=== PATIENT | male | born 2000 | race Two or more races ===

== ENCOUNTER 2019-05-07 21:18 | Emergency (ER) | payer OTHER ==
--- OUTSIDE RECORDS SUMMARY | 2019-05-07 21:24 | XMS REPORT | Summary of Care ---
:2000 Author Organization [facility] Address [address] [address] Care Team Providers Name Role Phone Bismark Santana MD Primary Care Provider Reason for Referral MRI/CAT/PET Scan (Routine) Status Reason Specialty Diagnoses / Referred By Contact Referred To Procedures Contact Authorized Radiology Diagnoses Right elbow pain Loose body in elbow joint, right Juan R Vaughan MD [facility] Procedures MR UPPER EXTREMITY JOINT WO CONTRAST RIGHT [address] [place], [place] [id number] [place] [address] Phone: Reason for Visit Reason Comments New Patient Right elbow pain since last spring. Patient states that he has landed on the elbow several times. Encounter Details Date Type Department Care Team Description 04/23/2019 Office Visit [facility] - Juan R Vaughan MD Right elbow pain (Primary Dx); [place] [facility] Loose body in elbow joint, right [address] [facility] [place] [address] [place] [address] [place] [address] [phone] Allergies Active Allergy Reactions Severity Noted Date Comments Environmental Respiratory Reaction 07/29/2017 documented as of this encounter (statuses as of 04/25/2019) Medications No known medicationsdocumented as of this encounter (statuses as of 04/25/2019) Active Problems Problem Noted Date 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 documented as of this encounter Last Filed Vital Signs Vital Sign Reading Time Taken Comments Blood Pressure 117/77 04/23/2019 1:10 PM EST Pulse 95 04/23/2019 1:10 PM EST Temperature - - Respiratory Rate - - Oxygen Saturation - - Inhaled Oxygen Concentration - - Weight 101.6 kg (224 lb) 04/23/2019 1:10 PM EST Height 198.1 cm (6' 6") 04/23/2019 1:10 PM EST Body Mass Index 25.89 04/23/2019 1:10 PM EST documented in this encounter Progress Notes Juan R Vuaghan MD - 04/23/2019 1:00 PM EST Name: Jet Webb : 2000 Date of Service: 04/23/2019 Referring Provider: Self-Referred Primary Care Provider: Bismark Santana Chief Complaint Patient presents with New Patient Right elbow pain since last spring. Patient states that he has landed on the elbow several times. History of Present Illness: Jet Webb is a 19-y.o. States he injured his right elbow below last spring 1999pa ient is in today for evaluation of his right dominant elbow. Patient states he injured his right elbow while playing basketball last spring 2018. 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 History reviewed. No pertinent past medical history. History reviewed. No pertinent surgical history. No current outpatient medications on file. No current facility-administered medications for this visit. Allergies Allergen Reactions Environmental Respiratory Reaction Social History Socioeconomic History Marital status: Single Spouse name: Not on file Number of children: Not on file Years of education: Not on file Highest education level: Not on file Occupational History Not on file Social Needs Financial resource strain: Not on file Food insecurity Worry: Not on file Inability: Not on file Transportation needs Medical: Not on file Non-medical: Not on file Tobacco Use Smoking status: Never Smoker Smokeless tobacco: Never Used Substance and Sexual Activity Alcohol use: Not on file Drug use: Not on file Sexual activity: Not on file Lifestyle Physical activity Days per week: Not on file Minutes per session: Not on file Stress: Not on file Relationships Social connections Talks on phone: Not on file Gets together: Not on file Attends nondenominational service: Not on file Active member of club or organization: Not on file Attends meetings of clubs or organizations: Not on file Relationship status: Not on file Intimate partner violence Fear of current or ex partner: Not on file Emotionally abused: Not on file Physically abused: Not on file Forced sexual activity: Not on file Other Topics Concern Not on file Social History Narrative Not on file History reviewed. No pertinent family history. Physical Examination: BP 117/77 | Pulse 95 | Ht 6' 6" (1.981 m) | Wt 224 lb (101.6 kg) | BMI 25.89 kg/m Well-developed well-nourished male in minimal discomfort at rest. Examination of right dominant elbow reveals: -5 degrees of full extension. After which the patient complains of discomfort patient has flexion to 120 degrees after which she has moderate discomfort. Patient has full supination and full pronation of the right elbow. Xrays: Right elbow reveal degenerative changes at the olecranon humeral joint. Impression: 1. Right elbow pain Traumatic DJD right elbow Plan: We will obtain MRI of right elbow to rule out loose bodies. follow-up after MRI is completed. L questions answered. There are no Patient Instructions on file for this visit. Author: Juan R Vaughan MD 04/23/2019 13:30 documented in this encounter Plan of Treatment Date Type Specialty Care Team Description 04/30/2019 Ancillary Procedure Radiology 05/14/2019 Office Visit Orthopedics Juan R Vaughan MD [address] [place] [id number] [phone] Name Type Priority Associated Diagnoses Order Schedule MR UPPER EXTREMITY Imaging Routine Right elbow pain Expected: 04/23/2019, JOINT WO CONTRAST RIGHT Loose body in elbow Expires: 04/22/2020 joint, right Health Maintenance Due Date Last Done Comments DTaP/Tdap/Td Vaccines (1 - Tdap) 2009 HPV IMMUNIZATION SERIES (1 - Male 2009 2-dose series) DEPRESSION SCREENING 2010 HIV SCREENING 2013 INFLUENZA VACCINE (#1) 2019 HEPATITIS A IMMUNIZATION SERIES Aged Out No longer eligible based on patient's age to complete this topic MENINGOCOCCAL VACCINE IMM Aged Out No longer eligible based on patient's age to complete this topic PNEUMOCOCCAL 0-64 YRS Aged Out No longer eligible based on patient's age to complete this topic documented as of this encounter Results XR ELBOW MIN 3 VIEWS RIGHT (STANDARD) (04/23/2019 1:20 PM EST) Specimen Impressions Performed At No acute findings. No evidence for fracture. Urgency: Routine. This is a routine medical imaging report. Recommendation: No specific imaging recommendation. Signed by Epifanio Arce MD on 04/24/2019 2:52 PM Narrative Performed At Procedure(s): XR ELBOW MIN 3 VIEWS RIGHT (STANDARD) Date of service: 04/23/2019 1:14 PM Provided clinical information: 19 years, Male, "right elbow pain" Procedure and materials: Standard protocol. Comparison studies: None. Observations: 3 views right elbow. Bones appear intact with no fracture evident. Normal bony mineralization seen. No erosive findings. Elbow joint spaces as imaged appear fairly well preserved. There is no fat pad displacement. Procedure Note Interface, Rad Results - 04/24/2019 2:54 PM EST Procedure(s): XR ELBOW MIN 3 VIEWS RIGHT (STANDARD) Date of service: 04/23/2019 1:14 PM Provided clinical information: 19 years, Male, "right elbow pain" Procedure and materials: Standard protocol. Comparison studies: None. Observations: 3 views right elbow. Bones appear intact with no fracture evident. Normal bony mineralization seen. No erosive findings. Elbow joint spaces as imaged appear fairly well preserved. There is no fat pad displacement. IMPRESSION No acute findings. No evidence for fracture. Urgency: Routine. This is a routine medical imaging report. Recommendation: No specific imaging recommendation. Signed by Epifanio Arce MD on 04/24/2019 2:52 PM documented in this encounter Visit Diagnoses Diagnosis Right elbow pain Pain in joint, upper arm Loose body in elbow joint, right documented in this encounter Insurance Payer Benefit Plan / Subscriber ID Effective Phone Address Type Group Dates [facility] [employer] xxxxxxxxx 2018-Prese [facility] [employer] xxxxxxxxxxxx 2019-Pres [employer] ent documented as of this encounter
--- NOTE | 2019-05-07 21:31 | UC ---
Laceration HPI - HPI Summary HPI Summary: 19 yo [employer], lacerated the underside of his left chin tonight when he bumped another player during play. Tetanus up to date. No other head or neck trauma--feels fine without headache, vision changes, dizziness etc. - History Of Current Complaint Stated Complaint: CHIN LACERATION Time Seen by Provider: 05/07/19 21:25 Hx Obtained From: Patient Mechanism Of Injury: Blunt Trauma Onset/Duration: Sudden Onset, Lasting Hours - less than 2 hours ago Aggravating Factors: Movement - Allergies/Home Medications Allergies/Adverse Reactions: Allergies Allergy/AdvReac Type Severity Reaction Status Date / Time No Known Allergies Allergy Verified 07/22/17 09:36 Home Medications: Home Medications NK [No Home Medications Reported] 05/07/19 [History Confirmed 05/07/19] PMH/Surg Hx/FS Hx/Imm Hx Previously Healthy: Yes - Surgical History Surgical History: Yes Surgery Procedure, Year, and Place: RIGHT KNEE FOR OSTEOCHONDRITIS UNDER PATELLA ;. WISDOM TEETH/ORAL PROCEDURES; - Family History Known Family History: Positive: Non-Contributory - Social History Occupation: Student Lives: Dormitory/Roommates Alcohol Use: None Substance Use Type: None Have You Smoked in the Last Year: No Review of Systems All Other Systems Reviewed And Are Negative: Yes Constitutional: Positive: Negative Skin: Positive: Negative Eyes: Positive: Negative ENT: Positive: Negative Respiratory: Positive: Negative Cardiovascular: Positive: Negative Gastrointestinal: Positive: Negative Genitourinary: Positive: Negative Motor: Positive: Negative Neurovascular: Positive: Negative Musculoskeletal: Positive: Negative Neurological: Positive: Negative Psychological: Positive: Negative Is Patient Immunocompromised?: No Physical Exam Triage Information Reviewed: Yes Appearance: Well-Appearing, No Pain Distress Eye Exam: Normal ENT: Positive: Pharynx normal Neck: Positive: Supple, Nontender, No Lymphadenopathy Respiratory: Positive: Lungs clear, Normal breath sounds Cardiovascular: Positive: RRR, No Murmur Musculoskeletal Exam: Normal Neurological Exam: Normal Psychological Exam: Normal Skin Exam: Other - laceration of the underside of the left chin, 1 cm, full dermis Laceration Repair - Laceration Repair 1 Description: Linear Laceration Course/Dx - Diagnosis Provider Diagnosis: Laceration of chin without complication Discharge ED - Sign-Out/Discharge Documenting (check all that apply): Patient Departure All imaging exams completed and their final reports reviewed: No Studies - Discharge Plan Condition: Good Disposition: HOME Patient Education Materials: Facial Laceration (ED) Referrals: No Primary Care Phys,NOPCP [Primary Care Provider] - Additional Instructions: Please have sutures removed in FIVE days, and keep the wound as clean and dry as you can. Infection is low likelihood, but follow up if the wound has drainage or becomes more painful. - Billing Disposition and Condition Condition: GOOD Disposition: Home
[2019-05-07 21:33] VITALS: BP 125/58
[2019-05-07] MEDS ORDERED: Lidocaine 2% PF * 5 ML VIAL IV ONE (21:42)
== END 2019-05-07 22:19 | disposition home or self-care (01) ==
LOC: UCEAST 21:18
DX: S01.81XA Laceration without foreign body of other part of head, initial encounter (principal); W51.XXXA Accidental striking against or bumped into by another person, initial encounter; Y93.67 Activity, basketball; Y92.9 Unspecified place or not applicable
CPT/HCPCS: 12011; 99211; G0463